=== PATIENT | female | born 1990 | race Caucasian/White ===

== ENCOUNTER 2019-06-04 17:30 | Emergency (ER) | payer MEDICAID, OTHER ==
[2019-06-04] MEDS ORDERED: MOTRIN 400 MG PO ONE (17:46)
[2019-06-04 17:47] VITALS: O2SAT 100
--- NOTE | 2019-06-04 17:51 | ERPHSYRPT ---
- History of Present Illness Time Seen by Provider: 06/04/19 17:42 Source: patient Exam Limitations: no limitations Patient Subjective Stated Complaint: pt reports stepping out of her van approx 1630 twisting her left leg, states she heard a loud pop and began to have severe pain. denies any other injury. Triage Nursing Assessment: pt aox3, pupils perrl, afebrile, resps easy and non labored, radial pulses strong and equal, cap refill < 3 seconds, pt skin pink warm dry. swelling and pain to the left knee that radiates down to mid calf. pedal pulse present. Physician History: Pt states, she was stepping out of he van this afternoon, twisted her left knee , heard a loud "pop" and fel sudden pain in her left knee. She denies fall, other injury or complaints. Method of Injury: twisted Occurred: just prior to arrival Quality: constant Severity of Pain-Max: severe Severity of Pain-Current: severe Lower Extremities Pain: knee: left (pain, swelling) Modifying Factors: Improves With: immobilization, movement Associated Symptoms: none Allergies/Adverse Reactions: No Known Drug Allergies Allergy (Unverified 02/22/14 17:37) Home Medications: proGESTerone [Progesterone] 50 mg IM WEEKLY 02/22/14 [History] Hx Tetanus, Diphtheria Vaccination/Date Given: (unk) Hx Influenza Vaccination/Date Given: No Hx Pneumococcal Vaccination/Date Given: No Immunizations Up to Date: Yes - Review of Systems Constitutional: No Symptoms Ears, Nose, & Throat: No Symptoms Respiratory: No Symptoms Cardiac: No Symptoms Abdominal/Gastrointestinal: No Symptoms Musculoskeletal: Other (left knee pain, swelling.) Skin: No Symptoms Neurological: No Symptoms All Other Systems: Reviewed and Negative - Past Medical History Pertinent Past Medical History: No Neurological History: Other - Past Surgical History Past Surgical History: Yes Gastrointestinal: Cholecystectomy - Social History Smoking Status: Never smoker Exposure to second hand smoke: Yes Drug Use: none Patient Lives Alone: No - Female History Hx Last Menstrual Period: 06/04/19 Hx Now: No - Nursing Vital Signs Nursing Vital Signs: Initial Vital Signs Temperature 98 F 06/04/19 17:38 Pulse Rate 114 H 06/04/19 17:38 Respiratory Rate 24 06/04/19 17:38 Blood Pressure 126/111 06/04/19 17:38 O2 Sat by Pulse Oximetry 100 06/04/19 17:38 Pain Scale Pain Intensity 10 - Physical Exam General Appearance: no apparent distress Eyes, Ears, Nose, Throat Exam: normal ENT inspection Neck Exam: normal inspection, non-tender Cardiovascular/Respiratory Exam: chest non-tender, normal breath sounds, heart sounds normal Gastrointestinal/Abdominal Exam: non-tender, soft Back Exam: normal inspection, No CVA tenderness, No vertebral tenderness Hips Exam: left: normal inspection Knees Exam: left knee: soft tissue tenderness (moderated, diffuse, anterior tenderness, and swelling over the lateral tibia plateau, unable to expend, knee is locked in flexed position, no deformity, severe effusion, ecchymosis, good distal pulses and sensation of the foot.) Neuro/Tendon Exam: normal motor functions Mental Status Exam: alert, oriented x 3, cooperative Skin Exam: normal color, warm, dry, No cyanosis, No diaphoresis SpO2 Interpretation: normal SpO2: 100 O2 Delivery: Room Air - Course Nursing assessment & vital signs reviewed: Yes - Radiology Exams Left Knee X-ray Interpretation: Interpreted by me, Negative Left Lower Leg X-ray Interpretation: Interpreted by me, Negative Ordered Tests: Active Orders 24 hr Category Date Time Status Crutches STAT Care 06/04/19 18:48 Active IV Insertion STAT Care 06/04/19 18:20 Active Immobilizer STAT Care 06/04/19 18:48 Active KNEE (3 VIEWS) Stat Exams 06/04/19 17:46 Taken LOWER LEG Stat Exams 06/04/19 17:46 Taken HCG,QUALITATIVE URINE Stat Lab 06/04/19 Uncollected Medication Summary Generic Name Dose Route Start Last Admin Trade Name Freq PRN Reason Stop Dose Admin Sodium Chloride 1,000 mls @ 999 mls/hr 06/04/19 18:13 06/04/19 18:22 Sodium Chloride 0.9% 1000 Ml IV 06/04/19 19:13 999 mls/hr .Q1H1M STA Administration Discontinued Medications Generic Name Dose Route Start Last Admin Trade Name Freq PRN Reason Stop Dose Admin Fentanyl Citrate 50 mcg 06/04/19 18:13 06/04/19 18:23 Sublimaze 100 Mcg/2 Ml IV 06/04/19 18:14 50 mcg STAT ONE Administration Fentanyl Citrate Confirm 06/04/19 18:17 Sublimaze 100 Mcg/2 Ml Administered 06/04/19 18:18 Dose 100 mcg .ROUTE .STK-MED ONE Sodium Chloride Confirm 06/04/19 18:17 Sodium Chloride 0.9% 1000 Ml Administered 06/04/19 18:18 Dose 1,000 mls @ ud .ROUTE .STK-MED ONE Ibuprofen 400 mg 06/04/19 17:46 06/04/19 18:00 Motrin 400 Mg PO 06/04/19 17:47 400 mg STAT ONE Administration Ibuprofen Confirm 06/04/19 17:59 Motrin 400 Mg Administered 06/04/19 18:00 Dose 400 mg .ROUTE .STK-MED ONE Ondansetron HCl 4 mg 06/04/19 18:13 06/04/19 18:23 Zofran 4 Mg/2 Ml Vial IV 06/04/19 18:14 4 mg STAT ONE Administration Ondansetron HCl Confirm 06/04/19 18:16 Zofran 4 Mg/2 Ml Vial Administered 06/04/19 18:17 Dose 4 mg .ROUTE .STK-MED ONE - Progress Progress: improved Progress Note: 06/04/19 18:50 Pt imporved after IV Fentanyl, able to extend her left knee more, good distal pulses noted, and sensation, no sign of compartment syndrome, reviewed her X rays with her, her left knee was placed in immobilizer and crutches provided, she is advised to rest x 2-3 days with elevated leg, and follow up with Orthopedic surgeon in 2-3 days. Counseled pt/family regarding: diagnosis, need for follow-up, rad results - Departure Departure Disposition: Home Clinical Impression: Left knee sprain Qualifiers: Encounter type: initial encounter Involved ligament of knee: unspecified ligament Qualified Code(s): S83.92XA - Sprain of unspecified site of left knee, initial encounter Condition: Stable Critical Care Time: No Referrals: HUSSAIN MCFARLANE MD [ACTIVE STAFF] - Instructions: Knee Sprain (DC), Meniscal Tear (DC) Additional Instructions: Rest x 2-3 days with elevated leg, apply ice or cold compresses to painful knee and follow up with your physician and Orthopedic surgeon in 2-3 days, return if severe pain, swelling, sudden discoloration, coldness, numbness of the foot or toes! Forms: Work/School Release Form Prescriptions: Tramadol HCl 50 mg [Ultram 50 mg] 50 mg PO Q6H PRN #10 tablet PRN Reason: Pain
[2019-06-04] MEDS ORDERED: MOTRIN 400 MG ONE (17:59)
[2019-06-04] MEDS ORDERED: Sodium Chloride 0.9% 1000 ML 1,000 ML IV STA (18:13)
[2019-06-04] MEDS ORDERED: Zofran 4 MG/2 ML VIAL IV ONE (18:13)
[2019-06-04] MEDS ORDERED: SUBLIMAZE 100 MCG/2 ML IV ONE (18:13)
[2019-06-04] MEDS ORDERED: Zofran 4 MG/2 ML VIAL ONE (18:16)
[2019-06-04] MEDS ORDERED: Sodium Chloride 0.9% 1000 ML 1,000 ML ONE (18:17)
[2019-06-04] MEDS ORDERED: SUBLIMAZE 100 MCG/2 ML ONE (18:17)
[2019-06-04 18:34] VITALS: BP 109/89; PULSE 99
--- NOTE | 2019-06-05 08:55 | XRAY ---
Indication: Pain following injury. Comparison: None 2 views of the left lower leg obtained. No bony, articular, or soft tissue abnormalities.
--- NOTE | 2019-06-05 08:55 | XRAY ---
Indication: Pain following injury. Comparison: None 3 views of the left knee obtained. No bony, articular, or soft tissue abnormalities.
== END 2019-06-04 19:23 | disposition home or self-care (01) ==
LOC: ED 17:30
DX: S83.92XA Sprain of unspecified site of left knee, initial encounter (principal); X50.1XXA Overexertion from prolonged static or awkward postures, initial encounter; Y93.9 Activity, unspecified
CPT/HCPCS: 36000; 73562; 73590; 96360; 96374; 96375; 99284; J2405; J3010; L1830; A9270-GY

== ENCOUNTER 2024-12-08 09:53 | Emergency (ER) | payer OTHER ==
--- NOTE | 2024-12-08 10:08 | ERPHSYRPT ---
- History of Present Illness Time Seen by Provider: 12/08/24 10:08 Source: patient Physician History: This is a 34-year-old white female patient of nurse practitioner Brady who accidentally got bleach into her left eye. On that day she irrigated out extensively the left eye per her report. Because of redness and tenderness she was seen by occupational medicine on 12/07/2024 and a corneal abrasion was ruled out and patient was given erythromycin eye ointment. Today, she still has sensitivity to light and it is painful. She has not seen an poultry picking machine tender or x ray operator. There is tearing present. There continues to be redness present Timing/Duration: day(s) (3) Location: left eye Severity: mild Apparent Injury: possibly Associated Symptoms: burning, sensitivity to light, redness (Mild) Visual Assistive Devices: None Chemical Exposure: Yes ([place] 3 days ago) Treatment at Time of Chemical Exposure: 3 days ago, the patient underwent extens Allergies/Adverse Reactions: No Known Drug Allergies Allergy (Unverified 02/22/14 17:37) Home Medications: Semaglutide [Ozempic] 0.5 mg SQ WEEKLY 12/08/24 [History] Ustekinumab [Stelara] 12/08/24 [History] Hx Tetanus, Diphtheria Vaccination/Date Given: (unk) Hx Influenza Vaccination/Date Given: No Hx Pneumococcal Vaccination/Date Given: No Travel Risk - International Travel Have you traveled outside of the country in past 3 weeks: No - Emerging Infectious Disease Are you exhibiting symptoms associated with any current EIDs: No - Review of Systems Constitutional: No Symptoms Eyes: Discharge (Mild clear left eye), Eye Pain (Left eye), Eye Redness (Mild left eye), Tearing (Occasional), No Vision Changes, No Double Vision, No Foreign Body Sensation Ears, Nose, & Throat: No Symptoms Respiratory: No Symptoms Cardiac: No Symptoms Abdominal/Gastrointestinal: No Symptoms Genitourinary Symptoms: No Symptoms Musculoskeletal: No Symptoms Skin: No Symptoms Neurological: No Symptoms Psychological: No Symptoms Endocrine: No Symptoms Hematologic/Lymphatic: No Symptoms Immunological/Allergic: No Symptoms All Other Systems: Reviewed and Negative - Past Medical History Neurological History: No Pertinent History Cardiac History: Aneurysm Respiratory History: No Pertinent History Endocrine Medical History: No Pertinent History Musculoskeletal History: No Pertinent History - Past Surgical History Past Surgical History: Yes Gastrointestinal: Cholecystectomy - Female History Hx Last Menstrual Period: UNKNOWN - Social History Smoking Status: Never smoker Exposure to second hand smoke: Yes Drug Use: none Patient Lives Alone: No - Nursing Vital Signs Nursing Vital Signs: Initial Vital Signs Temperature 97.2 F 12/08/24 09:59 Pulse Rate 84 12/08/24 09:59 Respiratory Rate 16 12/08/24 09:59 Blood Pressure 171/92 12/08/24 09:59 O2 Sat by Pulse Oximetry 99 12/08/24 09:59 Pain Scale Pain Intensity 8 - Physical Exam General Appearance: no apparent distress, alert, anxiety Eye Exam: right eye: normal inspection, left eye: other (Mild left eye conjunctivitis with mild tearing present), bilateral eye: PERRL, EOMI Ears, Nose, Throat Exam: moist mucous membranes Respiratory Exam: airway intact, No chest tenderness, No respiratory distress Gastrointestinal Exam: No tenderness Neurologic: alert, oriented x 3, cooperative, 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 II-XII nml as tested, nml cerebellar function, nml station & gait, sensation nml Skin Exam: normal color, warm, dry Lymphatic: No adenopathy SpO2 Interpretation: normal O2 Delivery: Room Air - Course Nursing assessment & vital signs reviewed: Yes Ordered Tests: Medication Summary Discontinued Medications Generic Name Dose Route Start Last Admin Trade Name Zachq PRN Reason Stop Dose Admin Tetracaine HCl Confirm 12/08/24 10:26 Tetracaine Hcl/Pf 4 Ml Bottle Administered 12/08/24 10:27 Dose 4 ml OP .STK-MED ONE Tetracaine HCl 4 ml 12/08/24 10:29 12/08/24 10:30 Tetracaine Hcl/Pf 4 Ml Bottle OP 12/08/24 10:30 4 ml STAT STA Administration Tetrahydrozoline HCl 4 ml 12/08/24 10:27 12/08/24 10:29 Tetrahydrozoline Hcl 15 Ml Bottle Eye Drops OP 12/08/24 10:28 Not Given NOW ONE - Progress Progress: improved, pain not gone completely Progress Note: 12/08/24 10:42 My medical decision making and the assignment of low complexity to this patient's medical condition today is based on review of the patient's past medical history, review the patient's medication list, reviewed patient drug allergy list, history present illness and physical findings on examination. The workup in this patient does not require radiographic or laboratory studies. We did place 4 drops of tetracaine into the left eye for comfort and preexamination. Differential diagnosis includes was not limited to conjunctivitis, corneal abrasion Counseled pt/family regarding: diagnosis, need for follow-up Medical Desision Making - Diagnostic Testing Diagnostic test were ordered, analyzed, and reviewed by me: No - Risk of complications The pt has a mod risk of morbidity or mortality based on: Need for prescription drug management - Departure Departure Disposition: Home Clinical Impression: Acute conjunctivitis, left eye Condition: Stable Critical Care Time: No Referrals: CHINA FRANCO NP [Primary Care Provider] - Follow up/PCP as directed Additional Instructions: Continue rinsing the left eye out each evening before you go to bed and each morning when you awaken as we discussed. Continue the erythromycin ointment. Take the new medication as prescribed. Call your poultry picking machine tender or x ray operator on 12/10/2024, to make arrangements for follow-up appointment for further evaluation and management. Return to the emergency department if symptoms worsen. Prescriptions: Hydrocodone/APAP 5/325 [Steward[place] 5/325 mg] 1 each PO Q8HPRN PRN #6 tablet MDD 3 PRN Reason: Pain Prednisolone Acetate [Pred Forte] 2 drops OP TID #10 ml
[2024-12-08 10:09] VITALS: BP 171/92; PULSE 84; RESP 16; TEMP 97.2; O2SAT 99
[2024-12-08] MEDS ORDERED: TETRACAINE 0.5% STERI-UNIT SOL OP ONE (10:26)
[2024-12-08] MEDS: TETRAHYDRALAZINE 0.05% Drops OP ONE (10:29)
[2024-12-08] MEDS: TETRACAINE 0.5% STERI-UNIT SOL OP STA (10:30)
== END 2024-12-08 10:56 | disposition home or self-care (01) ==
LOC: ED 09:53
DX: T54.91XA Toxic effect of unspecified corrosive substance, accidental (unintentional), initial encounter (principal); H10.212 Acute toxic conjunctivitis, left eye; H57.12 Ocular pain, left eye; Z79.891 Long term (current) use of opiate analgesic; Z79.85 Long-term (current) use of injectable non-insulin antidiabetic drugs; Z79.899 Other long term (current) drug therapy
CPT/HCPCS: 99281; 99283; A9270-GY